=== PATIENT | female | born 1935 | race Caucasian/White ===

== ENCOUNTER 2019-02-15 10:15 | Emergency (ER) | payer MEDICARE ==
[2019-02-15] MEDS ORDERED: SODIUM CHLORIDE 0.9% (FLUSH) 10 ML SYG IV PRN (10:30)
[2019-02-15] MEDS ORDERED: ONDANSETRON INJ 4 MG/2 ML VIAL IV ONE (10:31)
[2019-02-15] MEDS ORDERED: SODIUM CHLORIDE 0.9% 1000ML 1,000 ML IVS ONE (10:31)
[2019-02-15] MEDS ORDERED: PANTOPRAZOLE SODIUM IV 40 MG VIAL IV ONE (10:32)
--- NOTE | 2019-02-15 10:35 | ED.PDOC ---
History of Present Illness - General Chief Complaint: GI Problem Stated Complaint: N/V x 3 episodes Time Seen by Provider: 02/15/19 10:20 - History of Present Illness Initial Comments: Patient is an 83 year old F who presents with complaints of nausea and vomiting. PMH is significant for history of diabetes, hypothyroidism, prior DVT on eliquis. States that she woke this morning and vomited x 2, noticed the emesis was black. Also complains of black bowel movement. She is currently visiting from [place] and she contacted her primary care provider who advised her to come to the Emergency Department. She denies abdominal pain. States that she does feel somewhat dizzy when she stands. She reports history of anemia, states that she was evaluated by GI in [place] several months ago but there were no significant findings. She denies history of peptic ulcer disease. No other complaints or symptoms at this time. Review of Systems - Review of Systems Constitutional: Denies: chills, fever EENTM: States: no symptoms reported Respiratory: Denies: short of breath Cardiology: Denies: chest pain, palpitations Gastrointestinal/Abdominal: States: nausea, vomiting. Denies: abdominal pain Genitourinary: Denies: frequency Musculoskeletal: States: no symptoms reported Skin: States: no symptoms reported Neurological: States: see HPI, weakness Endocrine: States: no symptoms reported Hematologic/Lymphatic: States: no symptoms reported, see HPI All other Systems: Reviewed and Negative Past Medical History (General) - Patient Medical History Hx of COPD: No Hx Cardiac Disorders: No Hx Hypertension: No Hx Thyroid Disease: Yes - Hypo Hx Diabetes: Yes Hx Cancer: No Surgical History: cholecystectomy, tonsillectomy, Hysterectomy, other - Vaccination History Hx Tetanus, Diphtheria Vaccination: No Hx Influenza Vaccination: Yes Hx Pneumococcal Vaccination: Yes - Social History Hx Tobacco Use: Yes Hx Alcohol Use: No Hx Substance Use: No Hx Substance Use Treatment: No Hx Depression: No - Female History Patient is a Female of Child Bearing Age (10 -59 yrs old): No Patient : No Family Medical History - Family History Mother Family History: No Known Living Status: Physical Exam - Physical Exam General Appearance: Alert, Well Developed, Well Groomed Eyes, Ears, Nose, Throat Exam: normal ENT inspection, pharynx normal Respiratory: no respiratory distress, no accessory muscle use Cardiovascular/Chest: normal peripheral pulses, regular rate, rhythm Gastrointestinal/Abdominal: non tender, soft, no organomegaly, no pulsatile mass Extremity: normal range of motion Neurologic: no motor/sensory deficits, alert, normal mood/affect, oriented x 3 Skin Exam: normal color Progress - Progress Progress: 02/15/19 10:36 83F presents with melanic stool, coffee ground emesis concerning for GI bleed, currently anticoagulated with eliquis. Visiting from [place], states that her PCP advised to come to the ED. States that she was evaluated by GI several months ago with endoscopy/colonoscopy and did not find any source of bleeding, does report that she has a history of anemia. Will evaluate for symptomatic anemia, GI bleeding. 02/15/19 13:58 Reviewed EGD report from OSH in [place], patient was found to have severe gastritis 02/15/19 14:[address] Valenzuela (GI), Dr. Ryan (IM). Patient accepted for transfer, awaiting bed assignment. 02/15/19 16:43 MDM: patient is 83F with history of gastritis anticoagulated on eliquis who presents with two episodes of coffee ground emesis and melanic stools. She has anemia with elevated BUN, tachycardia concerning for GI bleeding. Requires admit for monitoring of H/H, possible GI consultation. Improved after protonix and IVF. Patient and family requested transfer to [facility]. Patient accepted by Dr. Ryan, transferred in stable condition. Departure - Departure Clinical Impression: Hematemesis, Melena Time of Disposition: 14:55 Disposition: Transfer to Hospital Departure Forms: ED Discharge - Pt. Copy, Patient Portal Self Enrollment Home Medications: Ambulatory Orders Apixaban [Eliquis] 2.5 mg PO BID 02/15/19 Atorvastatin Calcium 40 mg PO DAILY 02/15/19 Dexlansoprazole [Dexilant] 60 mg PO DAILY 02/15/19 Donepezil Hydrochloride [Donepezil HCl] 10 mg PO DAILY 02/15/19 Levothyroxine Sodium [Synthroid] 175 mcg PO DAILY 02/15/19 Lisinopril 5 mg PO DAILY 02/15/19 Memantine [Namenda] 10 mg PO BID 02/15/19 Metformin HCl [Glucophage] 1,000 mg PO BID 02/15/19 Methylprednisolone 2 mg PO DAILY 02/15/19 Saccharomyces Boulardii [Florastor] 250 mg PO DAILY 02/15/19 Comments: Loy Fisher MD Emergency Medicine Physician number [id number]
[2019-02-15 16:07] VITALS: O2SAT 91
[2019-02-15 16:45] VITALS: BP 121/70; TEMP 98.2
== END 2019-02-15 16:30 | disposition short-term general hospital (02) ==
LOC: ER 10:15
DX: R11.2 Nausea with vomiting, unspecified (principal); K92.1 Melena; D64.9 Anemia, unspecified; R00.0 Tachycardia, unspecified; R79.89 Other specified abnormal findings of blood chemistry; R42 Dizziness and giddiness; E03.9 Hypothyroidism, unspecified; E11.9 Type 2 diabetes mellitus without complications; Z79.01 Long term (current) use of anticoagulants; Z90.49 Acquired absence of other specified parts of digestive tract; Z87.891 Personal history of nicotine dependence; Z86.718 Personal history of other venous thrombosis and embolism
CPT/HCPCS: 36415; 80053; 83690; 85025; 85610; 85730; J2405; J7030